=== PATIENT | male | born 1940 | race Caucasian/White ===

== ENCOUNTER 2020-04-28 18:46 | Emergency (ER) | payer MEDICARE, OTHER ==
[2020-04-28] MEDS ORDERED: Bacitracin Oint 1 GM U/D Packet TOP ONE (19:24)
[2020-04-28] MEDS ORDERED: Diphtheria/Tetanus Toxoids,Adult (Td) 0.5 ML SDV IM ONE (19:25)
--- NOTE | 2020-04-28 19:32 | EDM.PDOC ---
ED HPI GENERAL MEDICAL PROBLEM - General Chief Complaint: Bite:Animal, Insect Stated Complaint: DOG BITE RT HAND Time Seen by Provider: 04/28/20 19:06 Source of Information: Reports: Patient History Limitations: Reports: No Limitations - History of Present Illness INITIAL COMMENTS - FREE TEXT/NARRATIVE: The 79-year-old male presents to the emergency department with a dog bite on the right hand. Dog was fighting with his dog and the patient tried to pull them apart when the injury occurred. His last tetanus booster was many years ago. He is not sure of the dog's rabies vaccination status. Right Hand Pain Score (Numeric/FACES): 3 - Related Data Allergies Allergy/AdvReac Type Severity Reaction Status Date / Time No Known Allergies Allergy Verified 04/28/20 19:09 Home Meds: Home Meds . [Unable to Verify Home Med List] 04/28/20 [History] Past Medical History HEENT History: Reports: Impaired Vision Cardiovascular History: Reports: Hypertension, [place] Musculoskeletal History: Reports: Fracture Other Musculoskeletal History: fx arm Oncologic (Cancer) History: Reports: Colon - Infectious Disease History Infectious Disease History: Reports: Chicken Pox, Measles, Mumps - Past Surgical History GI Surgical History: Reports: Colonoscopy, Other (See Below) Other GI Surgeries/Procedures: colectomy with colostomy Social & Family History - Tobacco Use Smoking Status *Q: Never Smoker Second Hand Smoke Exposure: No - Caffeine Use Caffeine Use: Reports: Coffee - Alcohol Use Days Per Week of Alcohol Use: 0 - Recreational Drug Use Recreational Drug Use: Yes ED ROS GENERAL - Review of Systems Review Of Systems: See Below Constitutional: Reports: No Symptoms HEENT: Reports: No Symptoms GI/Abdominal: Reports: No Symptoms Musculoskeletal: Reports: Other Skin: Reports: Other (Lacerations of the right hand.) Neurological: Reports: Other (No numbness or weakness) ED EXAM, ANIMAL BITE - Physical Exam Exam: See Below Exam Limited By: No Limitations General Appearance: Alert, WD/WN, No Apparent Distress Skin Exam: Other (Facial lacerations on the dorsum of the right hand as well as on the dorsum of the index middle and ring finger. The length of the lacerations total is approximately 3 cm. Tendons were not involved and neurovascular exam is normal. No signs of foreign bodies.) ED ANIMAL BITE PROCEDURES - Laceration/Wound Repair Right Dorsal Hand Lac/Wound Length In cm: 4 Appearance: Superficial Distal NVT: Neuro & Vascular Intact, No Tendon Injury Anesthetic Type: Local Local Anesthesia - Lidocaine (Xylocaine): 1% Plain Local Anesthetic Volume: 5cc Skin Prep: Chlorhexidine (Hibiciens) Saline Irrigation (cc's): 150 Exploration/Debridement/Repair: Wound Explored Closed With: Sutures Suture Size: 5-0 # of Sutures: 6 Suture Type: Nylon, Interrupted Drain Placement: No Sterile Dressing Applied: Nurse Tetanus Status Addressed: Yes Complications: No Course - Vital Signs Text/Narrative:: This patient has a dog bite and sustained lacerations to the dorsal right hand, dorsum of the index middle and ring finger. These are all superficial wounds. They were irrigated with normal saline after filtration with 1% Xylocaine. Sutures were placed. There was no tendon injury and neurovascular exam was normal. The patient is not sure of the dog's rabies status and will contact the healthcare administrator. If the dog has not had a rabies booster within the past couple of years that should be quarantined for 10 days and seek hot wire glass tube cutter care if he becomes ill. The patient will watch for signs of secondary infections he is doctor if these are noted. He should have his stitches removed in 7 days. He will return here if he has any increased problems or concerns. The patient agrees with this plan. His tetanus was updated today. Last Recorded V/S: Last Vital Signs Temp 36.6 C 04/28/20 19:16 Pulse 68 04/28/20 19:16 Resp 16 04/28/20 19:16 BP 140/100 H 04/28/20 19:16 Pulse Ox 97 04/28/20 19:16 - Orders/Labs/Meds Orders: Active Orders 24 hr Category Date Time Status Vaccines to be Administered [RC] PER UNIT ROUTINE Care 04/28/20 19:25 Active Meds: Medications Discontinued Medications Generic Name Dose Route Start Last Admin Trade Name Freq PRN Reason Stop Dose Admin Bacitracin 1 dose 04/28/20 19:24 04/28/20 19:32 Bacitracin Oint 1 Gm TOP 04/28/20 19:25 1 dose ONETIME ONE Administration Lidocaine HCl 5 ml 04/28/20 19:24 04/28/20 19:32 Xylocaine-Mpf 1% INJECT 04/28/20 19:25 5 ml ONETIME ONE Administration Tetanus/Diphtheria Toxoids 0.5 ml 04/28/20 19:25 04/28/20 19:33 Tenivac IM 04/28/20 19:26 0.5 ml .ONCE ONE Administration Departure - Departure Time of Disposition: 19:49 Disposition: Home, Self-Care 01 Condition: Good Clinical Impression: Laceration - Discharge Information *PRESCRIPTION DRUG MONITORING PROGRAM REVIEWED*: No *COPY OF PRESCRIPTION DRUG MONITORING REPORT IN PATIENT DARNELL: No Referrals: Tl Eng MD [Primary Care Provider] - Forms: ED Department Discharge Additional Instructions: Keep the wounds clean and covered with antibiotic ointment and a Band-Aid. Watch for signs of infection including redness, swelling, pain and or discharge. See your doctor in 7 days for suture removal. Contact the dog's healthcare administrator and find out about dogs tetanus status. If the dog's tetanus is not up-to-date the dog should be quarantined team for 10 days and taken to a hot wire glass tube cutter if it develops any type of illness. If you have any questions regarding rabies contact your doctor or the [facility] infectious disease department. Return to the ER as needed. Sepsis Event Note (ED) - Evaluation Sepsis Screening Result: No Definite Risk - Focused Exam Vital Signs: Vital Signs Temp Pulse Resp BP Pulse Ox 04/28/20 19:16 36.6 C 68 16 140/100 H 97 - My Orders Last 24 Hours: My Active Orders 04/28/20 19:25 Vaccines to be Administered [RC] PER UNIT ROUTINE - Assessment/Plan Last 24 Hours: My Active Orders 04/28/20 19:25 Vaccines to be Administered [RC] PER UNIT ROUTINE
== END 2020-04-28 20:00 | disposition home or self-care (01) ==
LOC: JP.ED 18:46
DX: S60.470A Other superficial bite of right index finger, initial encounter (principal); S60.472A Other superficial bite of right middle finger, initial encounter; S60.474A Other superficial bite of right ring finger, initial encounter; I10 Essential (primary) hypertension; I25.2 Old myocardial infarction; Z23 Encounter for immunization; W54.0XXA Bitten by dog, initial encounter
CPT/HCPCS: 12002; 90471; 90714; 99283; J2001